=== PATIENT | female | born 1975 | race Caucasian/White ===

== ENCOUNTER → 2020-06-07 | Day surgery (SDC) | payer OTHER ==
[2020-06-02 16:10] LABS: BASOPHILS % 0.4 % (0.0-1.0); EOSINOPHILS # (AUTO) 0.2 (0.0-0.4); EOSINOPHILS % 1.8 % (0.0-6.0); HEMATOCRIT 38.7 % (34.2-44.1); HEMOGLOBIN 13.6 g/dL (12.0-16.0); LYMPHOCYTES # (AUTO) 3.2 (1.0-3.2); LYMPHOCYTES % 28.1 % (18.0-39.1); MEAN CORPUSCULAR HGB CONC 35.1 g/dL (31-35); MEAN CORPUSCULAR VOLUME 85.4 fL (81-99); MONOCYTES # (AUTO) 0.7 (0.2-0.8); MONOCYTES % 6.2 % (4.4-11.3); NEUTROPHILS # (AUTO) 7.2 (2.1-6.9); NEUTROPHILS % 63.1 % (38.7-80.0); PLATELET COUNT 233 x10e3/uL (140-360); RED BLOOD COUNT 4.53 x10e6/uL (3.6-5.1); RED CELL DISTRIBUTION WIDTH 13.2 % (11.7-14.4)
[~2020-06-07] MED LIST: BUPIVACAINE 0.25%/EPI 30ML SDV INJ ONE; DEXAMETHASONE SOD PHOS INJ 4 MG/ML VIAL ONE; ETOMIDATE 2 MG/ML 10 ML INJ IV ONE; FENTANYL CITRATE/PF 100MCG/2 ML INJ ONE; FISH OIL 1,0001 EAC2 PO; GLYCOPYRROLATE INJ 0.2 MG/ML VIAL ONE; KETOROLAC TROMETHAMINE 30 MG/ML VIAL ONE; LEVOTHYROXINE25 MCG PO; LIDOCAINE HCL 2% LOCAL INJ 5 ML SDV VIAL INJ ONE; MAGNESIUM100 MG PO; MELATONIN3 MG PO; MEPERIDINE HCL INJ 25 MG/ML VIAL ONE; NEOSTIGMINE 1 MG/ML 10ML VIAL ONE; ONDANSETRON HCL INJ 2MG/ML 2ML 2 MG/ML VIAL ONE; PROPOFOL IV EMULSION 10 MG/ML 20 ML VIAL ONE; ROCURONIUM BROMIDE 10 MG/ML 5ML VIAL IV ONE; SCOPOLAMINE 1.5 MG PATCH ONE; SEVOFLURANE INHAL SOLN 250 ML PEN BTL ONE; TRAMADOL HCL 50 MG TAB ONE; VITAMIN C 250250 MG PO; VITAMIN D3100 GM PO; VITAMIN D330 ML; ZYRTEC10 M3 PO
--- NOTE | 2020-06-07 12:28 | Operative Report ---
DATE OF PROCEDURE: 06/07/2020 SURGEON: Georgie Obrien MD PREOPERATIVE DIAGNOSIS: Pelvic pain, endometriosis. POSTOPERATIVE DIAGNOSIS: Pelvic pain, endometriosis. PROCEDURE: Laparoscopy, right ovarian cystectomy, ablation of endometriosis. COMPLICATIONS: None. ESTIMATED BLOOD LOSS: Minimal. DESCRIPTION OF PROCEDURE: The patient was taken to the OR where general anesthesia was induced. She was prepped and draped in a sterile fashion, placed in dorsal lithotomy position. After examination under anesthesia, HUMI self-retaining uterine manipulator was passed through the cervix into the uterine cavity for manipulation. Gloves were changed and two Allis clamps were applied to the umbilicus to leno the umbilicus. Infraumbilical skin incision was made with a scalpel and subcutaneous tissue dissected with a hemostat. A 5 mm bladeless trocar inserted with the scope inside and was passed through the abdominal wall into the abdominal cavity. Trocar was removed and scope was slid through the sleeve into the abdominal cavity. Abdomen was inflated with carbon dioxide gas. The patient was placed in Trendelenburg position. Two ports were made in the right side of the abdomen after injecting Marcaine with epinephrine and mapping the peritoneal cavity. A 5 mm skin incision was made in the skin and 5 mm trocar and cannula was passed through the abdominal wall into the abdominal cavity. Trocar was removed in both sites and instruments were inserted inside the pelvis. The patient was placed in Trendelenburg and the following findings were seen: Left ovary looked normal, and endometriosis was seen in the posterior wall of the broad ligament on the left side as well as excessive scar tissue close to the left uterosacral ligament. On the right side there was a right ovarian cyst of about 3 cm. Using grasper and LigaSure the right ovarian cyst was excised from the right ovary and chocolate material was noted to come out of the right ovarian cyst. Hemostasis was achieved with bipolar [place] and ovarian bed to achieve hemostasis. Suction irrigation was repeated several times. The left ovary was held and endometriosis on the ovarian bed on the left side was cauterized with the [place] and the scar tissue on the left ovarian uterosacral ligament was also cauterized. Otherwise uterus looked normal, upper abdomen was grossly normal. Decision was made to deflate the abdomen of the carbon dioxide gas. Instruments were removed from the abdomen. The skin was approximated with Dermabond and Marcaine with epi was injected subcutaneously. The patient tolerated the procedure well. Lap, instruments, and needle counts were correct x2. Georgie Obrien MD DD/DANIELLE /[id number]
[2020-06-07 13:00] VITALS: BP 109/78
== END | disposition home or self-care (01) ==
LOC: OR 05:30
PROVIDERS: ATTEND Obstetrics & Gynecology
DX: N80.3 Endometriosis of pelvic peritoneum (principal); N83.11 Corpus luteum cyst of right ovary; E03.9 Hypothyroidism, unspecified; J45.909 Unspecified asthma, uncomplicated; Z88.6 Allergy status to analgesic agent; Z88.1 Allergy status to other antibiotic agents; Z01.810 Encounter for preprocedural cardiovascular examination; Z01.812 Encounter for preprocedural laboratory examination; Z11.59 Encounter for screening for other viral diseases
CPT/HCPCS: 36415 ×2; 58662; 84702; 85025; 88304; 93005; C1758; J1100; J1885; J2001; J2175; J2405; J2704; J2710; J3010; U0002